=== PATIENT | male | born 1970 | race Caucasian/White ===

== ENCOUNTER 2018-09-04 09:43 | Day surgery (SDC) | payer OTHER ==
[~2018-09-04 09:43] MED LIST: PROPOFOL 200 MG/20 ML VIAL As Ordered
[2018-09-04] MEDS: NS 1,000 ML IV (09:51)
[2018-09-04] MEDS ORDERED: PROPOFOL 200 MG/20 ML VIAL As Ordered (10:47)
== END 2018-09-04 11:38 | disposition home or self-care (01) ==
LOC: M OPP 09:43
DX: Z12.11 Encounter for screening for malignant neoplasm of colon (principal); D12.5 Benign neoplasm of sigmoid colon; K64.0 First degree hemorrhoids; M19.90 Unspecified osteoarthritis, unspecified site; L71.9 Rosacea, unspecified; Z88.0 Allergy status to penicillin
CPT/HCPCS: 45385

== ENCOUNTER → 2019-05-07 | Outpatient (REF) | payer OTHER | LOC: M SFHCPLAZ 09:40 | PROVIDERS: ATTEND Dermatology | DX: L82.0 Inflamed seborrheic keratosis (principal) ==

== ENCOUNTER → 2020-05-08 | Outpatient (REF) | payer OTHER | LOC: M LAB REF 14:40 | PROVIDERS: ATTEND Dermatology | DX: D49.2 Neoplasm of unspecified behavior of bone, soft tissue, and skin (principal) ==

== ENCOUNTER → 2020-08-20 | Outpatient (CLI) | payer OTHER | LOC: M LABSMTC 12:23 | PROVIDERS: ATTEND Anesthesiology | DX: Z01.812 Encounter for preprocedural laboratory examination (principal); Z20.828 Contact with and (suspected) exposure to other viral communicable diseases | CPT/HCPCS: C9803; U0003 ==

== ENCOUNTER 2020-08-25 12:09 | Day surgery (SDC) | payer OTHER ==
[~2020-08-25] VITALS: Ht 175.3 cm; Wt 79.8 kg
[~2020-08-25 12:09] MED LIST changes: +NS 1,000 ML IV ONE; -PROPOFOL 200 MG/20 ML VIAL As Ordered
[2020-08-25] MEDS ORDERED: propofoL 200 MG/20 ML VIAL As Ordered ONE (13:09)
[2020-08-25] MEDS ORDERED: LIDOCAINE 2% 100MG/5ML SDV (FOR ANES.) As Ordered ONE (13:09)
--- NOTE | 2020-08-25 13:24 | ROOR ---
Patient Name: Shiva Dyer Procedure Date: 08/25/2020 1:01 PM Date of : 1970 Age: 50 Room: [facility] Gender: Male Note Status: Finalized Procedure: Total Colonoscopy to Cecum Indications: Rectal bleeding Providers: Mckinley Paredes MD Referring MD: Ruddy Bobby MD Requesting Provider: Medicines: Monitored Anesthesia Care Complications: No immediate complications. Procedure: Pre-Anesthesia Assessment: - The heart rate, respiratory rate, oxygen saturations, blood pressure, adequacy of pulmonary ventilation, and response to care were monitored throughout the procedure. The Colonoscope was introduced through the anus and advanced to the cecum, identified by appendiceal orifice and ileocecal valve. The colonoscopy was performed without difficulty. The patient tolerated the procedure well. The quality of the bowel preparation was excellent. Findings: The perianal and digital rectal examinations were normal. Non-bleeding internal hemorrhoids were found during retroflexion. The hemorrhoids were small and Grade I (internal hemorrhoids that do not prolapse). No other significant abnormalities were identified in a careful examination of the remainder of the colon. The exam was otherwise without abnormality on direct and retroflexion views. Impression: - Non-bleeding internal hemorrhoids. - The examination was otherwise normal on direct and retroflexion views. - No specimens collected. - The exam was otherwise normal to the cecum. Recommendation: - Patient has a contact number available for emergencies. The signs and symptoms of potential delayed complications were discussed with the patient. Return to normal activities tomorrow. Written discharge instructions were provided to the patient. - High fiber diet. - Discharge patient to home. - Continue present medications. - Repeat colonoscopy in 10 years for screening purposes. - Return to referring physician. - Preparation H cream: Apply externally as necessary. - The findings and recommendations were discussed with the patient. Mckinley Paredes MD Mckinley Paredes MD 08/25/2020 1:23:55 PM Electronically signed by Mckinley Paredes MD Number of Addenda: 0 Note Initiated On: 08/25/2020 1:01 PM Estimated Blood Loss: Estimated blood loss: none.
[2020-08-25 13:50] VITALS: BP 131/75
== END 2020-08-25 13:59 | disposition home or self-care (01) ==
LOC: M OPP 12:09
PROVIDERS: ATTEND Internal Medicine Gastroenterology
DX: K62.5 Hemorrhage of anus and rectum (principal); K64.0 First degree hemorrhoids

== ENCOUNTER → 2023-02-16 | Outpatient (CLI) | payer OTHER ==
[2023-02-16 15:43] LABS: C REACTIVE PROTEIN QUANTITATIV < 0.40 MG/DL (<1.0)
[2023-02-16 15:45] LABS: RHEUMATOID FACTOR QUANT < 3.5 IU/ML (<14)
[2023-02-16 15:47] LABS: TOTAL 25(OH) VITAMIN D 35.5 NG/ML (20.0-100.0)
[2023-02-18 13:08] LABS: ANTI DOUBLE STRAND-DNA AB 4 IU/mL (0-9); ANTINUCLEAR ANTIBODIES DIRECT Positive (Negative); PSA TOTAL 0.7 ng/mL (0.0-4.0); SJOGREN'S ANTI SS-A <0.2 AI (0.0-0.9); SJOGREN'S ANTI SS-B <0.2 AI (0.0-0.9); SMITH ANTIBODIES <0.2 AI (0.0-0.9)
== END ==
LOC: M LAB 14:08
PROVIDERS: ATTEND Physician Assistant
DX: Z12.5 Encounter for screening for malignant neoplasm of prostate (principal); M25.722 Osteophyte, left elbow; M17.12 Unilateral primary osteoarthritis, left knee; M19.012 Primary osteoarthritis, left shoulder

== ENCOUNTER → 2023-06-16 | Outpatient (REF) | payer OTHER | LOC: M LAB REF 17:37 | PROVIDERS: ATTEND Ophthalmology | DX: H02.824 Cysts of left upper eyelid (principal); L72.0 Epidermal cyst ==

== ENCOUNTER → 2024-04-21 | Outpatient (CLI) | payer OTHER | LOC: M SLEEP 20:00 | PROVIDERS: ATTEND Physician Assistant | DX: G47.33 Obstructive sleep apnea (adult) (pediatric) (principal); R40.0 Somnolence ==

== ENCOUNTER → 2024-09-30 | Outpatient (CLI) | payer OTHER | LOC: M SLEEP 20:00 | PROVIDERS: ATTEND Physician Assistant | DX: G47.33 Obstructive sleep apnea (adult) (pediatric) (principal) ==

== ENCOUNTER → 2025-09-05 | Outpatient (CLI) | payer OTHER ==
[2025-09-05 14:01] LABS: PLATELET COUNT, AUTOMATED 192 10^3/uL (150-450)
[2025-09-05 14:07] LABS: ALT/SGPT 24 U/L (7.0-40); AST/SGOT 34 U/L (<34); CALCIUM LEVEL 9.2 MG/DL (8.5-10.1); CARBON DIOXIDE LEVEL 31 MMOL/L (20-31); CHLORIDE LEVEL 102 MMOL/L (98-107); CHOLESTEROL LEVEL 189 MG/DL (<200); CHOLESTEROL RISK RATIO 3.11 (<5); CREATININE FOR GFR 0.97 MG/DL (0.70-1.30); GLOMERULAR FILTRATION RATE > 90.0 (>56); LDL CHOLESTEROL 119.9 MG/DL (<100); NON-HDL-C 128.3 MG/DL; POTASSIUM SERUM 5.0 MMOL/L (3.5-5.1); SODIUM LEVEL 140 MMOL/L (136-145); TRIGLYCERIDES LEVEL 42 MG/DL (<150)
[2025-09-05 14:11] LABS: FREE T4 1.30 NG/DL (0.89-1.76)
[2025-09-05 14:14] LABS: TESTOSTERONE 646 NG/DL (241-827); TOTAL 25(OH) VITAMIN D 35.6 NG/ML (20.0-100.0)
[2025-09-05 14:35] LABS: ESTIMATED AVERAGE GLUCOSE 105.0 MG/DL (60-110)
[2025-09-09 11:37] LABS: PSA % FREE 36.0 % (calc) (>25); PSA FREE 0.4 ng/mL; PSA TOTAL 1.1 ng/mL (< OR = 4.0)
== END ==
LOC: M PLALAB 10:26
DX: E78.5 Hyperlipidemia, unspecified (principal); Z12.5 Encounter for screening for malignant neoplasm of prostate; N52.9 Male erectile dysfunction, unspecified; G47.33 Obstructive sleep apnea (adult) (pediatric)